=== PATIENT | male | born 1995 | race Caucasian/White ===

== ENCOUNTER 2022-12-11 05:34 | Emergency (ER) | payer SELFPAY ==
[~2022-12-11] VITALS: Ht 177.8 cm; Wt 90.9 kg
--- NOTE | 2022-12-11 05:53 | NUR ---
PT REFUSED ALL CARE FROM RN'S/MEMBERSHIP MANAGER'S AND EMT'S. NO VS OR EKG COMPLETED AT THIS TIME. MD AWARE. PT SITTING UPRIGHT, TALKING TO STAFF, & BEING UNCOOPERATIVE.
--- NOTE | 2022-12-11 06:06 | NUR ---
pt refused to answer nurse questions. pt noncompliant with request of care.
--- NOTE | 2022-12-11 06:32 | NUR ---
pt refused ekg from tech. would not sit up to let us do the ekg test.
--- NOTE | 2022-12-11 06:40 | NUR ---
PT REFUSED FOR RN TO TAKE VS, PERFORM EKG, AND ASSESSMENT. PT REFUSED TO GIVE HOME ADDRESS AND REFUSED DISCHARGE PAPERWORK. PT WAS NOT MEDICALLY CLEARED. PT LEFT THE ED AMBULATORY. PAPERWORK WAS PROVIDED TO THE POLICE.
== END 2022-12-11 06:50 | disposition home or self-care (01) ==
LOC: ER 05:35
DX: R07.89 Other chest pain (principal); R51.9 Headache, unspecified
CPT/HCPCS: 99283